=== PATIENT | male | born 1975 | race Caucasian/White ===

== ENCOUNTER → 2021-12-27 15:50 | Outpatient (CLI) | payer OTHER, SELFPAY ==
[2021-12-27 16:40] LABS: COVID19 -Nasal RAPID Negative (Negative)
== END ==
PROVIDERS: Visit Provider Surgery
DX: Z20.822 Contact with and (suspected) exposure to COVID-19 (principal); Z01.812 Encounter for preprocedural laboratory examination
CPT/HCPCS: 87635; C9803

== ENCOUNTER 2021-12-30 12:14 | Day surgery (SDC) | payer OTHER, SELFPAY ==
--- NOTE | 2021-12-30 | PATH_ITS ---
[facility] Accession Number: [id number] . 01 Material submitted: . PART A: duodenum - DUODNEUM PART B: stomach - ANTRUM PART C: colon - RANDOM COLON . 01 Diagnosis: A. Duodenum, Biopsy: Duodenal mucosa with no diagnostic abnormality. Negative for active inflammation, features of sprue, dysplasia, or malignancy. . B. Antrum, Biopsy: Gastric antral mucosa with mild chronic inflammation. Negative for Helicobacter organisms by immunohistochemistry. Negative for intestinal metaplasia. Negative for dysplasia or malignancy. . C. Random Colon: Colonic mucosa with no diagnostic abnormality. Negative for active, chronic, and microscopic colitis. Negative for dysplasia and malignancy. [facility] 01/03/2022 1700 Local . 01 Electronically signed: . Jn Cunningham MD, PhD, Pathologist NPI- [id number] . 01 Gross description: . Part A: DUODNEUM: Received in formalin are 2 fragment(s) of mckeon, soft tissue measuring 0.1 x 0.1 x 0.1 cm to 0.3 x 0.3 x 0.2 cm submitted entirely in 1 cassette(s) Part B: ANTRUM: Received in formalin are 3 fragment(s) of mckeon, soft tissue measuring 0.1 x 0.1 x 0.1 cm in aggregate submitted entirely in 1 cassette(s) Part C: RANDOM COLON: Received in formalin are 2 fragment(s) of mckeon, soft tissue measuring 0.1 x 0.1 x 0.1 cm to 0.2 x 0.2 x 0.2 cm submitted entirely in 1 cassette(s) /RICARDO 12/31/2021 1929 Local . 01 Microscopic: . B. An immunohistochemical stain was performed to evaluate for Helicobacter organisms and is negative. The control stain showed appropriate reactivity. . * This test was developed and its performance characteristics determined by [facility]. It has not been cleared or approved by the U.S. Food and Drug Administration. The FDA has determined that such clearance or approval is not necessary. This test is used for clinical purposes. It should not be regarded as investigational or for research. . 01 Pathologist provided ICD-10: K62.5, K29.70 . 01 CPT . 346365, 984928, 797680, F69188 Specimen Comment: A courtesy copy of this report has been sent to [phone] Performed at: 01 [facility] [address] [place] [address], [place], [place] [id number] MD David Arredondo MD Phone: [phone]
[2021-12-30 12:56] VITALS: BMI 34.5
[2021-12-30 13:08] VITALS: BP 135/84; PULSE 57; RESP 18; TEMP 36.3; O2SAT 100
[2021-12-30] MEDS: SODIUM CHLORIDE 0.9% 1,000 ML 100 ML IV (13:27)
--- NOTE | 2021-12-30 13:43 | PM.HP.1 ---
History of Present Illness History of Present Illness Date Patient Seen: 12/30/21 Time Patient Seen: 13:44 Chief complaint: SDC Narrative: I reviewed the recent note in clinic from Dr. Malhotra. No significant changes. Oddly the patient is scheduled for colonoscopy today with me and then has an EGD on ThursdayJanuary 13. I recommended we consolidate the 2 procedures to save him a 2nd anesthesia 2nd trip to the hospital a 2nd COVID testing etc.. The patient was very interested in accomplishing the 2 studies today if possible. Patient History Medical History Prostate CA Sleep apnea Surgical History H/O prostatectomy Hx of colonoscopy Hx of right inguinal hernia repair Family & Social History Social History: household members spouse Tobacco & Substance use: Smoking Status Former smoker alcohol intake current Substance Use Type does not use Meds Home Medications and Allergies Home Medications Medication Instructions Recorded Confirmed Type escitalopram oxalate 10 mg tablet 10 mg DAILY 12/30/21 12/30/21 History fluticasone propionate 50 1 spray INTRANASAL DAILY 12/30/21 12/30/21 History mcg/actuation nasal spray,suspension (Flonase Allergy Relief) gabapentin 300 mg capsule 600 mg DAILY 12/30/21 12/30/21 History hydrocortisone 1 %-pramoxine 1 % 1 applic BID 12/30/21 12/30/21 History rectal foam (Proctofoam HC) lidocaine 5 % topical patch 1 patch PRN PRN 12/30/21 12/30/21 History loratadine 10 mg tablet 10 mg DAILY 12/30/21 12/30/21 History olopatadine 0.1 % eye drops 1 drp DAILY 12/30/21 12/30/21 History omeprazole 20 mg capsule,delayed 20 mg DAILY 12/30/21 12/30/21 History release tadalafil 5 mg tablet 5 mg DAILY 12/30/21 12/30/21 History Allergies Allergy/AdvReac Type Severity Reaction Status Date / Time Sulfa (Sulfonamide Allergy Unknown Anaphylaxis Verified 12/30/21 12:45 Antibiotics) Review of Systems Review of Systems ROS: Yes All systems reviewed with the patient and are negative except as otherwise documented Exam Vital Signs (past 8 hours): - 12/30/21 13:08 Temperature 97.4 F L Pulse Rate 57 L Respiratory Rate 18 Blood Pressure 135/84 Pulse Oximetry 100 Oxygen Delivery Method Room Air Const General: cooperative and comfortable Orientation: alert HENMI Head: normocephalic Ears: external ears normal Nose: external nose normal Face and sinus: normal facial exam Mouth: oral mucosae normal Eyes General: appearance normal, both eyes and all related structures Neck Neck: normal visual inspection Chest Chest: normal inspection of the chest Resp Effort & Inspection: normal respiratory effort Cardio Rate: regular rate GI Inspection: normal to inspection Skin General: no rashes or lesions noted and No jaundice Neuro General: patient alert and moves all extremities Cognition: normal cognition Speech: speech normal Extrem General: no pedal edema Psych Appearance: grossly normal Assessment & Plan Assessment & Plan narrative: 46-year-old male with a history of epigastric pain, dark possibly bloody stools suggestive of melena, and intermittent red blood per rectum. He has a history of prostate cancer status post radiation. EGD and colonoscopy are pursued today. Time Spent With Patient Critical Care time: I spent a total of [] minutes of critical care time on this patient's care today; this time is exclusive of procedural time.
--- NOTE | 2021-12-30 13:46 | PM.PREOP ---
Pre-operative Note COVID-19 COVID-19 status: Negative Result date/Date tested (Pos, Neg/Pending): 12/27/21 Criteria for continued procedure: Possibility delay results in more complex future surgery or treatment Interval Note History & Physical reviewed/Exam performed by Physician: Yes Changes to H&P: Yes ASA Class (for procedural sedation): II
[2021-12-30 15:36] VITALS: BP 134/79; PULSE 68; RESP 17; TEMP 36.3; O2SAT 97
--- NOTE | 2021-12-30 15:38 | PM.OP.EC ---
Operative Date/Time/Diagnoses Date of procedure: 12/30/21 Time of procedure: 15:38 Pre-op diagnosis: Epigastric pain altered bowel habit rectal bleeding diarrhea Post-op diagnosis: same Procedure & Clinicians Study performed: EGD with biopsies and a colonoscopy with biopsies Same procedure as scheduled: Yes Indications: Epigastric pain altered bowel habit rectal bleeding diarrhea Surgeon: Jose Parnell Procedure Notes SCOAP/Timeout: Done Procedure in detail: After the risks and benefits were explained, written and verbal informed consent was obtained. The patient was brought into the procedure room and placed into the left lateral decubitus position. Please see nurse terra cotta roofer notes for sedation details. The scope was introduced into the mouth through the bite block and advanced under direct visualization to the 2nd portion of the duodenum. The scope was slowly withdrawn carefully examining the mucosa for any defects or lesions. Retroflexed views were accomplished in the stomach. The stomach was decompressed, the scope was then removed from the patient who tolerated the procedure in slightly suboptimal fashion. The patient seemed to struggle with managing his own secretions during the procedure requiring quite a bit of oral suction. The patient was then turned around a digital rectal examination accomplished. No significant pathology appreciated. The scope was introduced into the rectum and advanced to the cecum as identified by the appendiceal orifice and ileocecal valve. The terminal ileum was interrogated. The scope was then slowly withdrawn to carefully examine the mucosa for any defects or lesions. Multiple direct views were made through the dentate line for exclusion of pathology the colon was decompressed, the scope removed the patient who tolerated the procedure well. Adult colonoscope Bowel prep adequate Scope withdrawal time: 9 minutes Sedation minutes: 56 Complications: none Impression: 1. Duodenum: No significant mucosal pathology was appreciated from the bulb through to the 2nd portion. Biopsies from D2 were acquired considering the patient's reported symptoms. 2. Stomach: Patient had some patchy erythema in the antrum. No ulcers no mass lesions no outlet obstruction. Biopsies from the antrum were acquired for exclusion of Helicobacter or other pathology. Retroflexed views of the LES disclosed sliding hiatal hernia. 3. Esophagus: The squamocolumnar junction correlated generally with the top of the gastric folds. GEJ was at roughly 37 cm from the incisors. A clean Z-line was not evident as there was a moderate amount of inflammation noted. I would rate this at LA grade C erosive esophagitis. The inflammation extended past 35 cm from the incisors. The diaphragmatic pinchcock was at approximately 40 cm from the incisors. 4. Colon: No evidence of any macroscopic colitis. Random colon biopsies were taken for exclusion of microscopic disease. In the rectum there were scattered nonbleeding telangiectasia consistent with prior radiation to the prostate. 5. Terminal ileum: This was visually normal. Endoscopic diagnosis 1. 3 cm hiatal hernia 2. Gastropathy 3. LA grade C erosive esophagitis 4. Rectal radiation induced telangiectasia 5. Otherwise visually unremarkable colonoscopy Post-procedure Plan for aftercare: 1. Await histopathology 2. Increase omeprazole from 20 mg daily to 20 mg twice daily. It is important to take this 30 minutes before the 1st meal and last meal of the day on a relatively empty stomach. 3. Repeat EGD in 8 weeks to evaluate for healing. 4. 20mL of a 10% sucralfate suspension enema twice daily x 4 wks. 5. Repeat flexible sigmoidoscopy at the time of EGD if there is any persistent bleeding. Disposition: PACU
[2021-12-30 15:42] VITALS: BP 123/86; PULSE 75; RESP 15; O2SAT 97
[2021-12-30 15:47] VITALS: BP 124/83; PULSE 65; RESP 16; O2SAT 97
[2021-12-30 15:52] VITALS: BP 129/82; PULSE 65; RESP 19; O2SAT 97
[2021-12-30 15:55] VITALS: BP 130/89; PULSE 64; RESP 16; O2SAT 97
== END 2021-12-30 16:13 | disposition home or self-care (01) ==
PROVIDERS: Referring Provider Internal Medicine Gastroenterology; Visit Provider Internal Medicine Gastroenterology
PROC: 0DJ08ZZ Inspection of Upper Intestinal Tract, Via Natural or Artificial Opening Endoscopic (ICD-10-PCS; CPT 43235; principal; 2021-12-30 14:00)
PROC: 0DJD8ZZ Inspection of Lower Intestinal Tract, Via Natural or Artificial Opening Endoscopic (ICD-10-PCS; CPT 45378; 2021-12-30 14:00)
DX: K62.5 Hemorrhage of anus and rectum (principal); R19.7 Diarrhea, unspecified; R10.13 Epigastric pain; K44.9 Diaphragmatic hernia without obstruction or gangrene; K22.10 Ulcer of esophagus without bleeding; K62.7 Radiation proctitis; K29.50 Unspecified chronic gastritis without bleeding
CPT/HCPCS: 45380; 43239; J2704

== ENCOUNTER → 2022-02-14 15:21 | Outpatient (CLI) | payer OTHER, SELFPAY ==
[2022-02-14 17:53] LABS: COVID19 -Nasal RAPID Negative (Negative)
== END ==
PROVIDERS: Visit Provider Surgery
DX: Z20.822 Contact with and (suspected) exposure to COVID-19 (principal); Z01.812 Encounter for preprocedural laboratory examination
CPT/HCPCS: 87635; C9803

== ENCOUNTER 2022-02-17 12:43 | Day surgery (SDC) | payer OTHER, SELFPAY ==
--- NOTE | 2022-02-17 | PATH_ITS ---
[facility] Accession Number: [id number] . 01 Material submitted: . esophagus, E-G Junction - GE JUNCTION . 01 Diagnosis: Gastroesophageal Junction, Biopsy: Squamocolumnar junctional mucosa with no diagnostic abnormality. Negative for intestinal metaplasia. Negative for dysplasia and malignancy. . [facility] 02/19/2022 1037 Local . 01 Electronically signed: . Marichuy Burnham MD, Pathologist NPI- [id number] . 01 Gross description: . GE JUNCTION: Received in formalin is 1 fragment(s) of mckeon, soft tissue measuring 0.3 x 0.2 x 0.1 cm submitted entirely in 1 cassette(s) /[facility]BJ 02/18/2022 0709 Local . 01 Pathologist provided ICD-10: R10.30 . 01 CPT . 059871 Specimen Comment: A courtesy copy of this report has been sent to [phone] Performed at: 01 [facility] [address] [place] [address] [address], [place], [place] [id number] MD David Arredondo MD Phone: [phone]
[2022-02-17] MEDS: SODIUM CHLORIDE 0.9% 1,000 ML 84 ML IV (13:40)
[2022-02-17 13:52] VITALS: BP 142/92; PULSE 64; RESP 18; TEMP 36.1; O2SAT 97; BMI 35.2
--- NOTE | 2022-02-17 14:12 | PM.HP.1 ---
History of Present Illness History of Present Illness Date Patient Seen: 02/17/22 Time Patient Seen: 14:13 Chief complaint: SDC Narrative: Symptoms of reflux are much improved on 20 mg twice a day omeprazole. He use the sucralfate suspension enemas and has noted an improvement in the red blood per rectum. This is now seen only intermittently and of low volume. Patient History Medical History Prostate CA Sleep apnea Surgical History H/O prostatectomy Hx of colonoscopy Hx of right inguinal hernia repair Family & Social History Social History: household members spouse Tobacco & Substance use: Smoking Status Former smoker alcohol intake current alcohol intake frequency a few times a week Substance Use Type does not use Meds Home Medications and Allergies Home Medications Medication Instructions Recorded Confirmed Type escitalopram oxalate 10 mg tablet 10 mg PO DAILY 12/30/21 02/17/22 History fluticasone propionate 50 1 spray intranasal DAILY 12/30/21 02/17/22 History mcg/actuation nasal spray,suspension (Flonase Allergy Relief) gabapentin 300 mg capsule 600 mg PO DAILY 12/30/21 02/17/22 History hydrocortisone 1 %-pramoxine 1 % 1 applic WI BID 12/30/21 02/17/22 History rectal foam (Proctofoam HC) lidocaine 5 % topical patch 1 patch topical PRN PRN Pain, 12/30/21 02/17/22 History Moderate loratadine 10 mg tablet 10 mg PO DAILY 12/30/21 02/17/22 History olopatadine 0.1 % eye drops 1 drp EYE-BOTH DAILY 12/30/21 02/17/22 History omeprazole 20 mg capsule,delayed 20 mg PO DAILY 12/30/21 02/17/22 History release tadalafil 5 mg tablet 5 mg DAILY 12/30/21 02/17/22 History ferrous fumarate 55 mg (18 mg 65 mg PO DAILY 02/17/22 02/17/22 History iron) tablet,extended release Allergies Allergy/AdvReac Type Severity Reaction Status Date / Time Sulfa (Sulfonamide Allergy Unknown Anaphylaxis Verified 12/30/21 12:45 Antibiotics) Review of Systems Review of Systems ROS: Yes All systems reviewed with the patient and are negative except as otherwise documented Exam Vital Signs (past 8 hours): - 02/17/22 13:52 Temperature 97.0 F L Pulse Rate 64 Respiratory Rate 18 Blood Pressure 142/92 H Pulse Oximetry 97 Oxygen Delivery Method Room Air Oxygen Delivery Method Room Air Const General: cooperative HENMT Head: normal to inspection Eyes General: appearance normal, both eyes and all related structures Neck Neck: normal visual inspection Chest Chest: normal inspection of the chest Resp Effort & Inspection: normal respiratory effort Cardio Rate: regular rate GI Inspection: normal to inspection Skin General: no rashes or lesions noted Neuro General: patient alert and patient awake Extrem General: normal to inspection and no pedal edema Psych Appearance: grossly normal Assessment & Plan Assessment & Plan narrative: 46-year-old with LA grade C erosive esophagitis. Repeat EGD is planned today to evaluate for healing. Based on only scant bleeding intermittently per rectum, will hold off on repeat flex sig at this time. Time Spent With Patient Critical Care time: I spent a total of [] minutes of critical care time on this patient's care today; this time is exclusive of procedural time.
--- NOTE | 2022-02-17 14:15 | PM.PREOP ---
Pre-operative Note COVID-19 COVID-19 status: Negative Result date/Date tested (Pos, Neg/Pending): 02/14/22 Criteria for continued procedure: Possibility delay results in more complex future surgery or treatment Interval Note History & Physical reviewed/Exam performed by Physician: Yes Changes to H&P: Yes ASA Class (for procedural sedation): II
--- NOTE | 2022-02-17 15:16 | PM.OP.EGD ---
Operative Date/Time/Diagnoses Date of procedure: 02/17/22 Time of procedure: 15:16 Pre-op diagnosis: LA grade C erosive esophagitis Post-op diagnosis: same Procedure & Clinicians Study performed: EGD with biopsy Same procedure as scheduled: Yes Indications: LA grade C erosive esophagitis Surgeon: Jose Parnell Procedure Notes SCOAP/Timeout: Done Procedure in detail: After the risks and benefits were explained, written and verbal informed consent was obtained. The patient was brought into the procedure room and placed into the left lateral decubitus position. Please see nurse commercial installer notes for sedation details. The scope was introduced into the mouth through the bite block and advanced under direct visualization to the 2nd portion of the duodenum. The scope was slowly withdrawn carefully examining the mucosa for any defects or lesions. Retroflexed views were accomplished in the stomach. The stomach was decompressed, the scope was then removed from the patient who tolerated the procedure well. Sedation minutes: 6 Complications: none Impression: 1. Duodenum: This was normal from the bulb through the 2nd portion. 2. Stomach: The patient had a gastropathy as before. I did not repeat biopsies. Retroflexed views of the LES were unremarkable. 3. Esophagus: The previously noted esophagitis has completely healed. The Z-line was sharp but slightly irregular and slightly wondering into the distal esophagus. I took a biopsy from the apex of 1 of these tongues to exclude the possibility of specialized intestinal metaplasia. No ulcers no strictures no mass lesions the remainder of the esophagus was unremarkable. Small sliding hiatal hernia was noted. Endoscopic diagnosis 1. Healed esophagitis 2. Small sliding hiatal hernia 3. Slightly irregular Z-line 4. Gastropathy Post-procedure Plan for aftercare: 1. Await histopathology 2. Continue anti-reflux therapy. 3. Surveillance EGD will only be indicated should Barretts be identified histologically. Disposition: PACU
[2022-02-17 15:20] VITALS: BP 147/86; PULSE 72; RESP 19; TEMP 37; O2SAT 95
[2022-02-17 15:25] VITALS: BP 146/72; PULSE 70; RESP 23; TEMP 36.9; O2SAT 92
[2022-02-17 15:30] VITALS: BP 129/63; PULSE 60; RESP 19; TEMP 36.9; O2SAT 96
[2022-02-17 15:35] VITALS: BP 122/77; PULSE 63; RESP 16; TEMP 36.6; O2SAT 97
== END 2022-02-17 15:44 | disposition home or self-care (01) ==
PROVIDERS: Referring Provider Internal Medicine Gastroenterology; Visit Provider Internal Medicine Gastroenterology
PROC: 0DJ08ZZ Inspection of Upper Intestinal Tract, Via Natural or Artificial Opening Endoscopic (ICD-10-PCS; CPT 43235; principal; 2022-02-17 14:00)
DX: Z87.19 Personal history of other diseases of the digestive system (principal); G47.30 Sleep apnea, unspecified; K44.9 Diaphragmatic hernia without obstruction or gangrene; K31.9 Disease of stomach and duodenum, unspecified
CPT/HCPCS: 43239; J2704

== ENCOUNTER → 2024-01-22 12:10 | Outpatient (CLI) | payer OTHER, SELFPAY ==
--- NOTE | 2024-01-22 12:11 | DI.MRI.S_ITS ---
PROCEDURE: MR TMJ WO CON INDICATIONS: Unspecified temporomandibular joint disorder TECHNIQUE: Axial T1 spin echo, coronal and sagittal PD fast spin echo through the temporomandibular joints, in both the closed- and open-mouth positions. COMPARISON: None. FINDINGS: Image quality: Excellent. Right: Joint is normally aligned on closed and open-mouth positioning. Articular disk demonstrates normal location and morphology. On the open mouth images, the right articular disc demonstrates normal capture. No bony erosions or osteophytes. Left: Joint is normally aligned on closed and open-mouth positioning. Articular disk demonstrates normal location and morphology. On the open mouth images, the left articular disc demonstrates appropriate capture. No bony erosions or osteophytes. IMPRESSION: Unremarkable TMJ MRI. Dictated by: Sorin Urena M.D. on 01/22/2024 at 12:59 Approved by: Sorin Urena M.D. on 01/22/2024 at 13:00
== END ==
LOC: MRI 12:10
DX: M26.609 Unspecified temporomandibular joint disorder, unspecified side (principal)
CPT/HCPCS: 70336

== ENCOUNTER → 2025-03-07 09:26 | Outpatient (CLI) | payer OTHER, SELFPAY ==
--- NOTE | 2025-03-07 09:28 | DI.NM.S_ITS ---
PROCEDURE: NM BONE SCAN WHOLE BODY RADIOPHARMACEUTICAL: 22 mCi Tc-99m MDP IV. INDICATIONS: NEOPLASM ON PROSTATE TECHNIQUE: Delayed whole-body scintigrams were obtained approximately 3-4 hours after intravenous injection of radiotracer. Anterior and posterior views were acquired from vertex to feet. COMPARISON: None. FINDINGS/IMPRESSION: No suspicious radiotracer uptake. Dictated by: Ronak Mendoza M.D. on 03/07/2025 at 16:25 Approved by: Ronak Mendoza M.D. on 03/07/2025 at 16:26
== END ==
LOC: NUCM 09:27
PROVIDERS: Visit Provider Internal Medicine Medical Oncology
DX: C61 Malignant neoplasm of prostate (principal)
CPT/HCPCS: 78306; A9503

== ENCOUNTER 2025-08-08 12:30 | Day surgery (SDC) | payer OTHER, SELFPAY ==
[2025-07-28 12:49] VITALS: BMI 27.1
--- NOTE | 2025-08-08 | PATH_ITS ---
[facility] Accession Number: [id number] No. of containers..03 Tissue . 01 Material submitted: . PART A: colon - COLITIS, 60 CM PART B: colon - RECTOSIGMOID, 25CM PART C: rectum - PROCTITIS . 01 Diagnosis: A. COLITIS AT 60 CM: Colonic mucosa with mild nonspecific subepithelial hemorrhage and congestion. See comment. No evidence of colitis. No infectious organisms, granulomas, dysplasia, or malignancy. . B. RECTOSIGMOID AT 25 CM: Colonic mucosa with mild nonspecific subepithelial hemorrhage and congestion. See comment. No evidence of colitis. No infectious organisms, granulomas, dysplasia, or malignancy. . C. PROCTITIS: Colonic mucosa with mild nonspecific subepithelial hemorrhage and congestion. See comment. No evidence of colitis. No infectious organisms, granulomas, dysplasia, or malignancy. [facility] 08/15/2025 1700 Local . 01 Comment: History of radiation proctitis is noted. The histologic features in these biopsies are nonspecific and the findings of hemorrhage and congestion may impart an erythematous or eroded appearance endoscopically. There are no diagnostic cytoarchitectural or vascular changes of radiation proctitis identified. . 01 Electronically signed: . Carolina Laguna MD, Pathologist NPI- [id number] . 01 Gross description: . A. Received in formalin with two identifiers and 60 cm no site are four mckeon soft tissue fragments measuring 0.4 x 0.3 cm in greatest dimension, submitted entirely in A1. B. Received in formalin with two identifiers and rectosigmoid 25 cm are two mckeon soft tissue fragments measuring 0.3 x 0.3 cm in greatest dimension, entirely submitted in B1. C. Received in formalin with two identifiers and no site as per requisition, are two mckeon soft tissue fragments measuring 0.4 x 0.3 cm in greatest dimension, submitted entirely in C1. ([id number]) /MRV 08/14/2025 2101 Local . 01 Pathologist provided ICD-10: R85.7, K52.89 . 01 CPT . 671690, 196108, 994395 Specimen Comment: A courtesy copy of this report has been sent to [facility] Performed at: [address] [facility] [address], [place], [place] [id number] MD David Arredondo MD Phone: [phone]
--- NOTE | 2025-08-08 06:12 | PM.HP.IH.1 ---
History of Present Illness History of Present Illness Date Patient Seen: 08/08/25 Chief complaint: SDC Narrative: Presents for colonoscopy today. Having rectal bleeding. [facility] Medical History (Updated 07/28/25 @ 12:48 by Tatum Rg RN) Prostate cancer (2019) Chronic low back pain Anxiety and depression HTN (hypertension) Exertional dyspnea Sleep apnea Surgical History (Updated 07/28/25 @ 12:48 by Tatum Rg RN) History of penile implant Hx of right inguinal hernia repair (12/2022) Hx of colonoscopy H/O prostatectomy Social History household members: spouse Smoking Status: Former smoker alcohol intake: current Meds Home Medications and Allergies Home Medications ?Medication ?Instructions ?Recorded ?Confirmed ?Type escitalopram oxalate 10 mg tablet 10 mg PO DAILY 12/30/21 06/22/25 History fluticasone propionate 50 1 spray intranasal DAILY 12/30/21 06/22/25 History mcg/actuation nasal spray,suspension (Flonase Allergy Relief) gabapentin 300 mg capsule 600 mg PO DAILY 12/30/21 06/22/25 History hydrocortisone 1 %-pramoxine 1 % 1 applic [place] BID 12/30/21 06/22/25 History rectal foam (Proctofoam HC) lidocaine 5 % topical patch 1 patch topical PRN PRN Pain, 12/30/21 06/22/25 History Moderate loratadine 10 mg tablet 10 mg PO DAILY 12/30/21 06/22/25 History olopatadine 0.1 % eye drops 1 drp EYE-BOTH DAILY 12/30/21 06/22/25 History omeprazole 20 mg capsule,delayed 20 mg PO DAILY 12/30/21 06/22/25 History release cyclobenzaprine 10 mg tablet 10 mg PO BEDTIME 06/19/25 06/22/25 History lisinopril 10 mg tablet 10 mg PO DAILY 06/19/25 06/22/25 History tirzepatide (weight loss) 10 10 mg SUBCUT QWEEK 06/19/25 06/22/25 History mg/0.5 mL subcutaneous pen injector (Zepbound) sodium,potassium,mag sulfates 17.5 See Rx Instructions PO .COMPLEX 06/20/25 06/22/25 Rx gram-3.13 gram-1.6 gram oral soln #354 mL (Suprep Bowel Prep Kit) Allergies Allergy/AdvReac Type Severity Reaction Status Date / Time Sulfa (Sulfonamide Allergy Unknown Anaphylaxis Verified 06/22/25 09:16 Antibiotics) Exam Narrative Exam Narrative: Const General: healthy appearing, comfortable and no acute distress Orientation: alert and oriented x3 HENMT Ears: hearing grossly normal bilaterally Eyes Visual Deng: normal visual deng by confrontation Conjunctivae: conjunctivae normal Sclera: sclerae normal EOM: EOM intact bilaterally Resp Effort & Inspection: normal respiratory effort and able to speak in complete sentences Cardio Rate: regular rate GI Palpation: soft (NT) Extrem General: no pedal edema and no calf tenderness Assessment & Plan Assessment and plan (1) Rectal bleeding: Status: Acute Plan Plan colonoscopy, possible biopsy. The risks, benefits and options regarding the procedure were explained to the patient in detail. Risk discussion included but not limited to: bleeding, perforation, unable to reach cecum, missed lesion. The patient was encouraged to ask questions and they were answered to their satisfaction. The patient understands and is agreeable to proceed. Time-Based Coding :: [TOTAL MINUTES] spent with patient and on the chart (including review of chart, obtaining history, exam, reviewing outside data, placing orders, documenting exam and treatment plan, and counseling patient) on [DATE]. PROFEE Litigation Specialist Document charge(s): Yes Charge Codes Initial inpatient/observation care: 49170
[2025-08-08 13:00] VITALS: BP 132/92; PULSE 70; RESP 16; TEMP 36.4; O2SAT 100
[2025-08-08] MEDS: LACTATED RINGERS 1,000 ML 84 ML IV (13:25)
[2025-08-08 14:52] VITALS: BP 133/79; PULSE 73; RESP 21; TEMP 36.6; O2SAT 98
--- NOTE | 2025-08-08 14:54 | PM.OP.COLON ---
Operative Date/Time/Diagnoses Date of procedure: 08/08/25 Time of procedure: 14:55 Pre-op diagnosis: Screening colonoscopy, +FIT, radiation proctitis Post-op diagnosis: same Procedure & Clinicians Study performed: Colonoscopy with biopsy Same procedure(s) as scheduled: Yes Indications: 49yo M, h/o radiaiton proctitis, +FIT Surgeon: Dawit Bender Anesthesia Type: MAC +/- Procedure Notes SCOAP/Timeout: Performed Procedure in detail: Colonoscopy Patient placed in left lateral recumbent position. Time out was performed. Procedural sedation was administered by anesthesia. Examination began with a thorough inspection of the perianal area. There was no evidence of fissures, fistulae, external hemorrhoids or cutaneous malignancy. The colonoscope was then placed into the rectum and the lumen was insufflated with carbon dioxide. The scope was carefully advanced forward. Ultimately the cecum was intubated and confirmed by identification of the ileocecal valve, the appendiceal orifice and the confluence of the taenia. The scope was then slowly withdrawn examining the colon thoroughly in all directions. In the rectum, retroflexion of the scope was performed for inspection of the distal rectum and anal canal. ?Significant colonoscopy findings: ?1. Quality of the preparation-good, [place] 2-3, improved with irrigation/suction ?2. Radiation proctitis, biopsies taken 3. Additional area of colitis at 25cm near rectosigmoid junction, small area over 25% of colon lumen, had ulcerative colitis mucosal pattern but small area, possible due to radiation, biopsies taken 4. No polyp, mass or stricture appreciated +FIT likely related to colitis Scope withdrawal time: 12 minutes Findings: colitis Specimen(s): other (biopsies) Estimated Blood Loss: 5 Complications: none Impression: Radiation proctitis Biopsies pending Post-procedure Recommendations: Colonoscopy in 10 years Plan for aftercare: PACU then home Follow up: as needed Disposition: PACU
[2025-08-08 14:56] VITALS: BP 140/90; PULSE 68; RESP 19; TEMP 36.6; O2SAT 98
== END 2025-08-08 15:26 | disposition home or self-care (01) ==
PROVIDERS: Referring Provider Surgery; Visit Provider Surgery
PROC: 0DJD8ZZ Inspection of Lower Intestinal Tract, Via Natural or Artificial Opening Endoscopic (ICD-10-PCS; CPT 45378; principal; 2025-08-08 14:00)
DX: K62.5 Hemorrhage of anus and rectum (principal); K62.7 Radiation proctitis; R19.5 Other fecal abnormalities; G47.33 Obstructive sleep apnea (adult) (pediatric); I10 Essential (primary) hypertension; K44.9 Diaphragmatic hernia without obstruction or gangrene; F41.9 Anxiety disorder, unspecified; F32.A Depression, unspecified; Z85.46 Personal history of malignant neoplasm of prostate; Z87.891 Personal history of nicotine dependence
CPT/HCPCS: 45380; J2704; J7120